=== PATIENT | male | born 1980 | race Hispanic/Latino ===

== ENCOUNTER 2020-06-30 10:45 | Inpatient (IN) | payer BC, SELFPAY ==
[~2020-06-30 10:45] MED LIST: Iopamidol-370 76% 500 ML 1 ML ONE
[2020-06-30] MEDS ORDERED: Morphine 4 MG/ML VIAL ONE (13:15)
[2020-06-30 14:45] LABS: ALT (SGPT) 47 U/L (8-55); AST (SGOT) 22 U/L (5-34); Albumin 3.8 g/dL (3.5-5.0); Alkaline Phosphatase 69 U/L (40-110); Anion Gap 15 mmol/L (10-20); BUN (Urea Nitrogen) 14 mg/dL (8.9-20.6); Bilirubin, Total 0.9 mg/dL (0.2-1.2); Calc. Creatinine Clearance 0 mL/min (70-130); Calcium 9.4 mg/dL (7.8-10.44); Carbon Dioxide 24 mmol/L (22-29); Chloride 100 mmol/L (98-107); Globulin 3.8 g/dL (2.4-3.5); Glucose 121 mg/dL (70-105); Lactic Acid 3.5 mmol/L (0.5-2.2); Potassium 4.3 mmol/L (3.5-5.1); Protein, Total 7.6 g/dL (6.0-8.3); Sodium 135 mmol/L (136-145); Troponin I 0.035 ng/mL (< 0.028)
[2020-06-30] MEDS ORDERED: Acetaminophen 325 MG TAB PO PRN (14:46)
[2020-06-30] MEDS ORDERED: Albuterol Sulfate 2.5 mg/3 ml Neb NEB PRN (14:50)
[2020-06-30 15:06] LABS: #Eosinphils 0.1 thou/uL (0.0-0.7); #Monocytes 0.4 thou/uL (0.11-0.59); #Neutrophils 11.3 thou/uL (1.40-6.50); %Basophils 0.3 % (0.0-1.0); %Eosinophils 0.5 % (0.0-10.0); %Lymphocytes 7.4 % (21.0-51.0); %Monocytes 3.3 % (0.0-10.0); %Neutrophils 88.5 % (42.0-75.0); Hemoglobin 18.3 g/dL (14.0-18.0); Mean Corpuscular HGB CONC 34.5 g/dL (32.0-36.0); Mean Corpuscular Hemoglobin 29.8 pg (27.0-31.0); Mean Corpuscular Volume 86.4 fL (78.0-98.0); Mean Platelet Volume 8.6 fL (7.4-10.4); Platelet Count 310 thou/uL (130-400); RBC Distribution Width 13.2 % (11.5-14.5); Red Blood Cell (RBC) Count 6.14 mill/uL (4.70-6.10); White Blood Cell (WBC) Count 12.8 thou/uL (4.8-10.8)
[2020-06-30] MEDS ORDERED: Albuterol 200 PUFF (6.7GM INHALER) INH PRN (16:05)
[2020-06-30] MEDS ORDERED: Dexamethasone 10 MG in Sodium Chloride 0.9% 50 ML IVPB SCH (16:45)
[2020-06-30 17:55] VITALS: BMI 28.1
[2020-06-30] MEDS: Enoxaparin Sodium 40 MG/0.4 ML SYRINGE SC SCH (20:52)
[2020-06-30] MEDS: Colchicine 0.6 MG TAB PO SCH (20:52)
[2020-07-01 06:49] LABS: #Monocytes 0.6 thou/uL (0.11-0.59); #Neutrophils 9.3 thou/uL (1.40-6.50); %Basophils 0.1 % (0.0-1.0); %Eosinophils 0.2 % (0.0-10.0); %Lymphocytes 9.3 % (21.0-51.0); %Monocytes 5.8 % (0.0-10.0); %Neutrophils 84.5 % (42.0-75.0); Hemoglobin 13.9 g/dL (14.0-18.0); Mean Corpuscular HGB CONC 33.4 g/dL (32.0-36.0); Mean Corpuscular Hemoglobin 28.9 pg (27.0-31.0); Mean Corpuscular Volume 86.4 fL (78.0-98.0); Mean Platelet Volume 8.3 fL (7.4-10.4); Platelet Count 260 thou/uL (130-400); RBC Distribution Width 12.8 % (11.5-14.5); Red Blood Cell (RBC) Count 4.81 mill/uL (4.70-6.10)
[2020-07-01 06:57] LABS: Anion Gap 12 mmol/L (10-20); BUN (Urea Nitrogen) 13 mg/dL (8.9-20.6); Calc. Creatinine Clearance 163 mL/min (70-130); Calcium 8.5 mg/dL (7.8-10.44); Carbon Dioxide 26 mmol/L (22-29); Chloride 103 mmol/L (98-107); Glucose 110 mg/dL (70-105); Potassium 4.1 mmol/L (3.5-5.1); Sodium 137 mmol/L (136-145)
[2020-07-01] MEDS: Colchicine 0.6 MG TAB PO SCH ×2 (08:52→21:00)
[2020-07-01] MEDS: Cholecalciferol (Vitamin D3) 400 UNITS TAB PO SCH (08:52)
[2020-07-01] MEDS: Zinc Sulfate 220 MG CAP PO SCH (08:52)
[2020-07-01] MEDS: Ascorbic Acid 500 mg Chewable Tablet PO SCH (08:52)
[2020-07-01] MEDS: Enoxaparin Sodium 40 MG/0.4 ML SYRINGE SC SCH ×2 (08:53→21:00)
[2020-07-01] MEDS ORDERED: Enoxaparin Sodium 40 MG/0.4 ML SYRINGE SC SCH (09:00)
[2020-07-01 16:06] LABS: Lactic Acid 3.5 mmol/L (0.5-2.2)
[2020-07-01] MEDS ORDERED: Sodium Chloride 0.9% 1,000 ML IV SCH ×2 (18:00)
[2020-07-01] MEDS ORDERED: Dexamethasone 6 MG in Sodium Chloride 0.9% 50 ML IVPB SCH (18:00)
[2020-07-01] MEDS: Dexamethasone 4 mg/ml Vial SLOW IVP SCH (18:25)
[2020-07-02 06:59] LABS: Hemoglobin 13.8 g/dL (14.0-18.0); Mean Corpuscular HGB CONC 32.9 g/dL (32.0-36.0); Mean Corpuscular Hemoglobin 28.6 pg (27.0-31.0); Mean Platelet Volume 8.7 fL (7.4-10.4); Platelet Count 226 thou/uL (130-400); RBC Distribution Width 12.9 % (11.5-14.5); Red Blood Cell (RBC) Count 4.81 mill/uL (4.70-6.10); White Blood Cell (WBC) Count 10.5 thou/uL (4.8-10.8)
[2020-07-02] MEDS: Colchicine 0.6 MG TAB PO SCH ×2 (08:24→19:46)
[2020-07-02] MEDS: Ascorbic Acid 500 mg Chewable Tablet PO SCH (08:24)
[2020-07-02] MEDS: Zinc Sulfate 220 MG CAP PO SCH (08:24)
[2020-07-02] MEDS: Cholecalciferol (Vitamin D3) 400 UNITS TAB PO SCH (08:24)
[2020-07-02] MEDS: Enoxaparin Sodium 40 MG/0.4 ML SYRINGE SC SCH ×2 (08:25→19:46)
[2020-07-02] MEDS: Benzonatate 100 MG CAP PO PRN ×2 (11:56→17:28)
[2020-07-02] MEDS ORDERED: Ondansetron PF 4 MG/2 ML Vial IVP PRN (13:41)
[2020-07-02] MEDS: Dexamethasone 4 mg/ml Vial SLOW IVP SCH (17:28)
[2020-07-03] MEDS: Zinc Sulfate 220 MG CAP PO SCH (08:28)
[2020-07-03] MEDS: Colchicine 0.6 MG TAB PO SCH ×2 (08:28→20:12)
[2020-07-03] MEDS: Cholecalciferol (Vitamin D3) 400 UNITS TAB PO SCH (08:28)
[2020-07-03] MEDS: Ascorbic Acid 500 mg Chewable Tablet PO SCH (08:28)
[2020-07-03] MEDS: Enoxaparin Sodium 40 MG/0.4 ML SYRINGE SC SCH ×2 (08:28→20:12)
[2020-07-03] MEDS ORDERED: Doxycycline 100 MG CAP PO SCH (12:45)
[2020-07-03] MEDS: Dexamethasone 4 mg/ml Vial SLOW IVP SCH (18:00)
[2020-07-03] MEDS: Doxycycline 100 MG CAP PO SCH (20:15)
[2020-07-04] MEDS: Enoxaparin Sodium 40 MG/0.4 ML SYRINGE SC SCH ×2 (08:49→20:09)
[2020-07-04] MEDS: Doxycycline 100 MG CAP PO SCH ×2 (08:50→20:09)
[2020-07-04] MEDS: Cholecalciferol (Vitamin D3) 400 UNITS TAB PO SCH (08:50)
[2020-07-04] MEDS: Colchicine 0.6 MG TAB PO SCH ×2 (08:50→20:09)
[2020-07-04] MEDS: Ascorbic Acid 500 mg Chewable Tablet PO SCH (08:50)
[2020-07-04] MEDS: Dexamethasone 4 mg/ml Vial SLOW IVP SCH (16:57)
[2020-07-05 08:02] LABS: #Eosinphils 0.1 thou/uL (0.0-0.7); #Lymphocytes 1.8 thou/uL (1.20-3.40); #Monocytes 0.6 thou/uL (0.11-0.59); #Neutrophils 4.3 thou/uL (1.40-6.50); %Basophils 0.7 % (0.0-1.0); %Eosinophils 1.9 % (0.0-10.0); %Lymphocytes 26.1 % (21.0-51.0); %Monocytes 9.1 % (0.0-10.0); %Neutrophils 62.2 % (42.0-75.0); Hemoglobin 14.2 g/dL (14.0-18.0); Mean Corpuscular Hemoglobin 29.6 pg (27.0-31.0); Mean Corpuscular Volume 87.2 fL (78.0-98.0); Mean Platelet Volume 8.3 fL (7.4-10.4); Platelet Count 196 thou/uL (130-400); RBC Distribution Width 12.9 % (11.5-14.5); Red Blood Cell (RBC) Count 4.78 mill/uL (4.70-6.10)
[2020-07-05 08:21] LABS: ALT (SGPT) 38 U/L (8-55); AST (SGOT) 22 U/L (5-34); Alkaline Phosphatase 46 U/L (40-110); Anion Gap 10 mmol/L (10-20); BUN (Urea Nitrogen) 15 mg/dL (8.9-20.6); Bilirubin, Total 0.5 mg/dL (0.2-1.2); CRP (Inflammatory) 0.75 mg/dL (= or < 0.5); Calc. Creatinine Clearance 125 mL/min (70-130); Calcium 8.6 mg/dL (7.8-10.44); Carbon Dioxide 28 mmol/L (22-29); Chloride 103 mmol/L (98-107); Globulin 2.9 g/dL (2.4-3.5); Glucose 85 mg/dL (70-105); Potassium 3.8 mmol/L (3.5-5.1); Protein, Total 5.9 g/dL (6.0-8.3); Sodium 137 mmol/L (136-145)
[2020-07-05] MEDS: Ascorbic Acid 500 mg Chewable Tablet PO SCH (08:42)
[2020-07-05] MEDS: Colchicine 0.6 MG TAB PO SCH ×2 (08:42→21:03)
[2020-07-05] MEDS: Cholecalciferol (Vitamin D3) 400 UNITS TAB PO SCH (08:42)
[2020-07-05] MEDS: Doxycycline 100 MG CAP PO SCH ×2 (08:43→21:03)
[2020-07-05] MEDS: Enoxaparin Sodium 40 MG/0.4 ML SYRINGE SC SCH ×2 (08:43→21:03)
[2020-07-05] MEDS: Dexamethasone 4 mg/ml Vial SLOW IVP SCH (17:33)
[2020-07-06] MEDS: Colchicine 0.6 MG TAB PO SCH (09:11)
[2020-07-06] MEDS: Doxycycline 100 MG CAP PO SCH (09:11)
[2020-07-06] MEDS: Ascorbic Acid 500 mg Chewable Tablet PO SCH (09:11)
[2020-07-06] MEDS: Cholecalciferol (Vitamin D3) 400 UNITS TAB PO SCH (09:11)
[2020-07-06] MEDS: Enoxaparin Sodium 40 MG/0.4 ML SYRINGE SC SCH (09:11)
[2020-07-06 16:07] VITALS: BP 110/69; TEMP 98.5
[2020-07-06] MEDS: Dexamethasone 4 mg/ml Vial SLOW IVP SCH (17:05)
== END 2020-07-06 18:43 | disposition home or self-care (01) | DRG 871 ==
LOC: EDBD 10:47 → ERS 10:47 → T4-A 14:27
PROVIDERS: ADMIT Internal Medicine; ATTEND Internal Medicine
PROC: 8E0ZXY6 Isolation (ICD-10-PCS; principal; 2020-06-30)
DX: A41.89 Other specified sepsis (principal); U07.1 COVID-19; J12.82 Pneumonia due to coronavirus disease 2019; J96.01 Acute respiratory failure with hypoxia; E87.2 Acidosis; I24.8 Other forms of acute ischemic heart disease; R65.20 Severe sepsis without septic shock; J45.20 Mild intermittent asthma, uncomplicated; F17.210 Nicotine dependence, cigarettes, uncomplicated; Z82.49 Family history of ischemic heart disease and other diseases of the circulatory system; Z82.5 Family history of asthma and other chronic lower respiratory diseases
CPT/HCPCS: 36415; 71045; 71275; 80048; 80053; 82728; 83605; 84145; 84484; 85025; 85027; 85379; 86140; 87040; 96365; 96367; 96375; J1100; J1650; J2270; Q9967

== ENCOUNTER 2023-02-14 13:47 | Outpatient (CLI) | payer OTHER | END 2023-02-14 13:48 | disposition home or self-care (01) | LOC: BICRAD 13:47 | PROVIDERS: ATTEND Nurse Practitioner Family | DX: M25.561 Pain in right knee (principal); M25.562 Pain in left knee | CPT/HCPCS: 73565 ==